=== PATIENT | male | born 1965 | race Caucasian/White ===

== ENCOUNTER → 2021-12-11 07:55 | Outpatient (BNVA) | payer BC, SELFPAY | PROVIDERS: Family Provider Internal Medicine; PCP Family Medicine; Visit Provider Urology | DX: N40.1 Benign prostatic hyperplasia with lower urinary tract symptoms (principal); Z12.5 Encounter for screening for malignant neoplasm of prostate | CPT/HCPCS: 81003 ==

== ENCOUNTER 2022-12-21 13:06 | Outpatient (CLI) | payer BC, SELFPAY ==
--- NOTE | 2022-12-21 13:23 | XRR_ITS ---
PROCEDURE INFORMATION: Exam: XR Right Shoulder Exam date and time: 12/21/2022 1:48 PM Age: 57 years old Clinical indication: Pain; Shoulder; Bilateral; Additional info: Bilateral shoulder pain TECHNIQUE: Imaging protocol: Radiologic exam of the right shoulder. Views: 2 or more views. COMPARISON: No relevant prior studies available. FINDINGS: Bones/joints: No fracture or dislocation is seen about the right shoulder. No abnormal widening or separation of the AC joint. Osseous structures show no acute abnormality. Minimal hypertrophic bony change at the AC joint superiorly. No abnormal soft tissue calcification is seen about the shoulder joint to indicate calcific tendinitis or bursitis. Soft tissues: See Bones/joints finding. XR/XR shoulder RT min 2V* [id number] IMPRESSION: Minimal hypertrophic bony change of the AC joint superiorly. No acute findings right shoulder.
--- NOTE | 2022-12-21 13:23 | XRR_ITS ---
PROCEDURE INFORMATION: Exam: XR Left Shoulder Exam date and time: 12/21/2022 1:48 PM Age: 57 years old Clinical indication: Pain; Shoulder; Bilateral; Additional info: Bilateral shoulder pain TECHNIQUE: Imaging protocol: Radiologic exam of the left shoulder. Views: 2 or more views. COMPARISON: No relevant prior studies available. FINDINGS: Bones/joints: No fracture or dislocation is seen about the left shoulder. No abnormal widening or separation of the AC joint. Mild chronic appearing ossification is seen superiorly at the AC joint. Osseous structures show no acute abnormality. Soft tissues: No abnormal soft tissue calcification is seen at the shoulder joint to indicate calcific tendinitis or bursitis. XR/XR shoulder LT min 2V* [id number] IMPRESSION: Mild degenerative change AC joint. No acute findings.
== END 2022-12-21 13:07 | disposition home or self-care (01) ==
PROVIDERS: PCP Family Medicine; Visit Provider Family Medicine
DX: M19.012 Primary osteoarthritis, left shoulder (principal); M25.511 Pain in right shoulder
CPT/HCPCS: 73030

== ENCOUNTER 2024-02-06 15:02 | Outpatient (CLI) | payer BC, SELFPAY | END 2024-02-06 15:03 | disposition home or self-care (01) | LOC: SLEEP 15:03 | PROVIDERS: PCP Family Medicine; Visit Provider Family Medicine | DX: G47.33 Obstructive sleep apnea (adult) (pediatric) (principal) | CPT/HCPCS: G0399 ==

== ENCOUNTER → 2024-05-25 14:34 | Outpatient (BNVA) | payer BC, SELFPAY | PROVIDERS: PCP Family Medicine; Visit Provider Family Medicine | DX: R50.9 Fever, unspecified (principal); J11.1 Influenza due to unidentified influenza virus with other respiratory manifestations | CPT/HCPCS: 87400 ==

== ENCOUNTER → 2024-12-08 16:22 | Outpatient (BNVA) | payer BC, SELFPAY | PROVIDERS: PCP Family Medicine; Visit Provider Emergency Medicine | DX: R50.9 Fever, unspecified (principal) | CPT/HCPCS: 87426 ==